=== PATIENT | female | born 1965 | race Caucasian/White ===

== ENCOUNTER 2016-10-18 11:31 | Day surgery (SDC) | payer BC ==
[2016-10-12 16:44] LABS: BASOPHILS 1.2 %; BASOPHILS ABSOLUTE 0.07 10/3/uL (0.0-0.16); EOSINOPHILS 1.3 %; EOSINOPHILS ABSOLUTE 0.08 10/3/uL (0.0-0.53); HEMATOCRIT 40.3 % (36.0-48.0); HEMOGLOBIN 13.6 g/dL (12.0-16.0); IMMATURE GRANULOCYTES 0.2 %; IMMATURE GRANULOCYTES ABSOLUTE 0.01 10/3/uL (0.0-0.11); LYMPHOCYTES 32.9 %; LYMPHOCYTES ABSOLUTE 1.96 10/3/uL (0.67-4.30); MEAN CORPUS HGB CONC 33.7 g/dL (32.0-36.0); MEAN CORPUSCULAR HEMOGLOB 29.5 pg (26.0-34.0); MEAN CORPUSCULAR VOLUME 87.4 fL (80-100); MEAN PLATELET VOLUME 9.8 fL (9.2-13.0); MONOCYTES 10.8 %; MONOCYTES ABSOLUTE 0.64 10/3/uL (0.21-1.20); NEUTROPHILS 53.6 %; NEUTROPHILS ABSOLUTE 3.19 10/3/uL (2.02-8.40); PLATELET COUNT 306 10/3/uL (150-400); RBC DISTRIBUTION WIDTH 12.8 % (12.0-16.0); RED CELL COUNT 4.61 10/6/uL (4.0-5.6)
[2016-10-12 16:45] LABS: MANUAL DIFF NO %
[2016-10-12 16:56] LABS: BUN (BLOOD UREA NITROGEN) 12 MG/DL (6-23); CALCIUM, SERUM 8.5 MG/DL (8.5-10.4); CHLORIDE, SERUM 104 MMOL/L (96-112); CO2 (CARBON DIOXIDE) 28 MMOL/L (24-34); CREATININE 0.57 MG/DL (0.55-1.02); GFR AFRICAN AMERICAN 124 ML/MIN (>=60); GFR NON AFRICAN AMERICAN 107 ML/MIN (>=60); GLUCOSE, SERUM 80 MG/DL (60-99); POTASSIUM, SERUM 3.9 MMOL/L (3.5-5.3); SODIUM, SERUM 140 MMOL/L (135-148)
--- NOTE | ~2016-10-18 | OP ---
Record Of Operation [facility] [address] [place]. 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 PREOPERATIVE DIAGNOSES: A 5 cm pelvic mass with history of ovarian struma ovarii and 12-week fibroid uterus. POSTOPERATIVE DIAGNOSES: A 14-week fibroid uterus and benign left ovarian cystadenoma. PROCEDURE PERFORMED: CPT code 84712 da Veronique (laparoscopic robotic) hysterectomy and left salpingo-oophorectomy. ESTIMATED BLOOD LOSS: 10 mL. MATERIAL FORWARDED TO LABORATORY FOR EXAMINATION: Correct as listed on the pathology report. INDICATIONS AND FINDINGS: Ms. 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 She presented with perimenopausal bleeding and was noted to have a 12-14 week uterus and a 5 cm cystic left ovarian mass. Her CA-125 was reassuring at 3.5 as noted. She has a history of a benign huge right ovarian struma ovarii. FINDINGS AT THE TIME OF SURGERY: She has a 14-week uterus with a serous cystic left ovarian mass. No other intraabdominal abnormalities are appreciated. Upon extirpation, the uterus and mass are inspected and there was no evidence of malignancy. PROCEDURE IN DETAIL: The patient was taken to the operating room where under general endotracheal anesthesia, she was placed in the modified lithotomy position using Lars stirrups. The abdomen and vagina were prepped and the patient was draped. A roomy uterine manipulator was placed. The Veress needle was inserted in the left upper quadrant. An 8 mm cannula was placed approximately 8 cm above the umbilicus. The da Veronique scope was inserted, and under direct visualization, three additional 8 mm cannula for the da Veronique system were inserted, two in the lower quadrants and one in the right midaxillary line. An accessory 10/12 trocar was placed in left upper quadrant. The patient was placed in Trendelenburg and the robot was assembled. From the console, a thorough intraabdominal pelvic exploration was undertaken. The findings were as noted. The retroperitoneal spaces were entered over the psoas muscle with extension to the round ligaments, which were isolated, coagulated with bipolar cautery, and transected with monopolar scissors. The anterior leaves of the broad ligament were dissected to the vesicouterine fold. The bladder was dissected off the lower uterine segment of vesicovaginal septum with electrocautery without difficulty. The perirectal spaces were developed. The left ovarian vessels were skeletonized, coagulated with bipolar cautery, and transected with monopolar scissors. The posterior leaves of broad ligament were dissected to the uterosacral ligaments. The uterine vessels were skeletonized. They were coagulated with bipolar cautery and transected with monopolar scissors. The cardinal and uterosacral ligaments were dissected with monopolar cautery to a Record Of Operation [address] [place]. [address] NAME: TRICIA WAHL : 63 [place] : [place] [facility] [place] [id number] AGE: 50 ADM/REG DATE : 10/18/16 MR#: [id number] REPORT SERV DATE: 10/18/16 DICTATED BY: FELICIA HERNANDEZ DATE: 10/18/16 REPORT STATUS : Draft TRANSCRIBED BY: IRAM DATE: 10/18/16 level below the cervix. The vagina was entered over the ELIZABETH nonconductive ring, and using electrocautery in a circumferential fashion, the hysterectomy was completed. The specimen was placed in a large anchor bag. The bag was exteriorized. The specimen was removed through morcellation confined to the bag. The pelvis was then irrigated, suctioned, inspected, and found to be free of clot, blood, or debris. The vaginal cuff was closed with a running stitch of #2-0 Vicryl. The pneumoperitoneum was reduced. All instruments were removed. All counts were correct. A posterior fourchette rent was closed with a running, locking stitch of #0 chromic. The patient was awakened and taken to the recovery room in stable condition after having tolerated the procedure well. JULIANN/IRAM Felicia Hernandez M.D. / [id number] CC: Axel Shah M.D.
[~2016-10-18 11:31] MED LIST: PAXIL CR37.5 MG PO; VITAMIN D2000 UNIT PO
== END 2016-10-18 22:07 | disposition home or self-care (01) ==
LOC: SDC 11:31
PROVIDERS: Obstetrics & Gynecology Gynecologic Oncology
PROC: 0UTC4ZZ Resection of Cervix, Percutaneous Endoscopic Approach (ICD-10-PCS; 2016-10-18)
PROC: 0UT14ZZ Resection of Left Ovary, Percutaneous Endoscopic Approach (ICD-10-PCS; 2016-10-18)
PROC: 0UT64ZZ Resection of Left Fallopian Tube, Percutaneous Endoscopic Approach (ICD-10-PCS; 2016-10-18)
PROC: 0UT94ZZ Resection of Uterus, Percutaneous Endoscopic Approach (ICD-10-PCS; principal; 2016-10-18 12:30)
DX: N83.02 Follicular cyst of left ovary (principal); F32.9 Major depressive disorder, single episode, unspecified
CPT/HCPCS: 36415; 71020; 80048; 84703; 85025; 86850; 86900; 86901; 88307; 93005; A9270-GY; J0694; J1885; J2175; J2250; J2405; J2710; J3010